=== PATIENT | male | born 1980 | race Caucasian/White ===

== ENCOUNTER 2016-09-24 15:14 | Emergency (ER) | payer MEDICARE, MEDICAID ==
[~2016-09-24] VITALS: Ht 185.4 cm; Wt 97.5 kg
[~2016-09-24 15:14] MED LIST: AZIT250T6 PO; BENZ100C PO; PRED50TA PO; PROAIR RESPICL90 MCG IH; PROM118S2 PO
[2016-09-24 16:12] VITALS: BP 139/75
--- NOTE | 2016-09-24 16:38 | PHYS DOC ---
Past Medical History Past Medical History: COPD Additional Past Medical Histor: back pain Past Surgical History: Other Additional Past Surgical Histo: TENDON MANIPULATION, PYLORIC STENOSIS, ANKLE (L ) Additional Information: 1/2 PPD Alcohol Use: None Drug Use: None Adult General Chief Complaint Chief Complaint: BACK PAIN - NO INJURY HPI HPI Patient is a 36 year old male who presents complaining of exacerbation of chronic back pain radiating to the left lower extremity. Patient denies any trauma. Denies any numbness or tingling to bilateral lower extremities. Denies any loss of bowel bladder function. Patient states once in a while he has exacerbation of this pain. Review of Systems Review of Systems Constitutional: Denies fever or chills [] Musculoskeletal: Left low back pain radiating to the left lower extremity Integument: Denies rash or skin lesions [] Neurologic: Denies headache, focal weakness or sensory changes [] Endocrine: Denies polyuria or polydipsia [] Allergies Allergies Allergies Coded Allergies Type Severity Reaction Last Updated Verified No Known Drug Allergies 01/29/16 No Physical Exam Physical Exam Constitutional: Well developed, well nourished, no acute distress, non-toxic appearance. [] Skin: Warm, dry, no erythema, no rash. [] Back: Diffuse paraspinal muscle tenderness to the left lumbar worse on the left SI joint, no midline lumbar spine tenderness, no CVA tenderness. Positive left leg straight raises Extremities: No tenderness, no cyanosis, no clubbing, ROM intact, no edema. [] Neurologic: Alert and oriented X 3, normal motor function, normal sensory function, no focal deficits noted. [] Psychologic: Affect normal, judgement normal, mood normal. [] Current Patient Data Vital Signs Vital Signs Date Time Temp Pulse Resp B/P (MAP) Pulse Ox O2 Delivery O2 Flow Rate FiO2 09/24/16 16:12 98.3 91 18 96 Room Air 98.3 EKG EKG [] Radiology/Procedures Radiology/Procedures [] Course & Med Decision Making Course & Med Decision Making Pertinent Labs and Imaging studies reviewed. (See chart for details) Patient is in the ED with exacerbation of chronic back pain with sciatica, he was provided a PCP for follow-up. He was provided return precautions and discharged in stable condition. Dragon Disclaimer Dragon Disclaimer This electronic medical record was generated, in whole or in part, using a voice recognition dictation system. Departure Departure Impression: Primary Impression: Low back pain Additional Impression: Sciatica Disposition: 01 HOME, SELF-CARE Condition: STABLE Referrals: NO PCP (PCP) Follow-up with a doctor from the list provided as soon as possible Patient Instructions: Back Pain, Adult, Sciatica with Rehab-SportsMed Additional Instructions: You were seen for exacerbation of chronic back pain with sciatica. Follow-up with a primary care doctor from the list provided as soon as you can Scripts Methocarbamol (ROBAXIN) 500 Mg Tablet 1 TAB PO TID, #30 TAB Prov: CHRIS SULLIVAN APRN 09/24/16 Tramadol Hcl (ULTRAM) 50 Mg Tablet 1 TAB PO Q6HRS, #30 TAB Prov: CHRIS SULLIVAN APRN 09/24/16 Problem Qualifiers Primary Impression: Low back pain Chronicity: acute Back pain laterality: left Sciatica presence: with sciatica Sciatica laterality: sciatica of left side Qualified Codes: M54.42 - Lumbago with sciatica, left side Additional Impression: Sciatica Laterality: left Qualified Codes: M54.32 - Sciatica, left side CHRIS SULLIVAN [employer] Sep 24, 2016 16:38
[2016-09-24] MEDS ORDERED: TRAM-48 PO (16:41)
[2016-09-24] MEDS ORDERED: METH-37 PO (16:41)
== END 2016-09-24 16:53 | disposition home or self-care (01) ==
LOC: ER 15:14
DX: M54.42 Lumbago with sciatica, left side (principal); G89.29 Other chronic pain; J44.9 Chronic obstructive pulmonary disease, unspecified; F17.200 Nicotine dependence, unspecified, uncomplicated
CPT/HCPCS: 99283

== ENCOUNTER 2017-02-13 19:53 | Emergency (ER) | payer MEDICARE, MEDICAID ==
[~2017-02-13] VITALS: Ht 185.4 cm; Wt 97.5 kg
[2017-02-13 19:53] VITALS: BP 146/74
[~2017-02-13 19:53] MED LIST changes: +METH-37 PO; +TRAM-48 PO
[2017-02-13] MEDS ORDERED: PRED50TA PO (20:24)
[2017-02-13] MEDS ORDERED: AZIT250T6 PO (20:24)
[2017-02-13] MEDS ORDERED: PROAIR HFA8.5 GM INH (20:24)
--- NOTE | 2017-02-13 20:25 | PHYS DOC ---
Past Medical History Past Medical History: COPD Additional Past Medical Histor: back pain Past Surgical History: Other Additional Past Surgical Histo: TENDON MANIPULATION, PYLORIC STENOSIS, ANKLE (L ) Alcohol Use: None Drug Use: None Adult General Chief Complaint Chief Complaint: Congestion HPI HPI Patient is a 36 year old male presents to the emergency department with a one- week history of upper respiratory symptoms with fever. Patient states that 7 days ago he developed ear pain with a fever and has since developed a cough. States that he is readily taking foods and fluids without vomiting but did have several episodes diarrhea. Does use tobacco, denies use of alcohol or drugs. Review of Systems Review of Systems Constitutional: Even without chills Eyes: Denies change in visual acuity, redness, or eye pain [] HENT: nasal congestion or sore throat [] Respiratory: Cough without shortness of breath Cardiovascular: Denies chest pain GI: Denies abdominal pain, nausea, vomiting, bloody stools, complaining of diarrhea : Denies dysuria or hematuria [] Musculoskeletal: Myalgia Integument: Denies rash or skin lesions [] Neurologic: Denies headache, focal weakness or sensory changes [] Endocrine: Denies polyuria or polydipsia [] All other systems were reviewed and found to be within normal limits, except as documented in this note. Current Medications Current Medications Current Medications Medications (Trade) Dose Ordered Sig/Cathryn Start Time Stop Time Status Last Admin Dose Admin Albuterol/ Ipratropium (Duoneb) 3 ml 1X ONCE 02/13/17 20:30 02/13/17 20:31 DC 02/13/17 20:44 3 ML Allergies Allergies Allergies Coded Allergies Type Severity Reaction Last Updated Verified No Known Drug Allergies 01/29/16 No Physical Exam Physical Exam Constitutional: Well developed, well nourished, no acute distress, non-toxic appearance. [] HENT: Normocephalic, atraumatic, bilateral external ears normal, right tympanic membrane erythematous with effusion, left tympanic membrane with effusion, oropharynx moist, posterior pharynx erythematous, no oral exudates, nose normal. [] Eyes: conjunctiva normal, no discharge. [] Neck: Normal range of motion, no tenderness, supple no lymphadenopathy, no stridor. [] Cardiovascular:Heart rate regular rhythm, no murmur [] Lungs & Thorax: Breath sounds with coarse rhonchi throughout. Scattered wheezing on inspiration Abdomen: Bowel sounds normal, soft, no tenderness Skin: Warm, dry, no erythema, no rash. [] Back: No tenderness, no CVA tenderness. [] Extremities: No tenderness, no cyanosis, no clubbing, ROM intact, no edema. [] Neurologic: Alert and oriented X 3, normal motor function, normal sensory function, no focal deficits noted. [] Psychologic: Affect normal, judgement normal, mood normal. [] Current Patient Data Vital Signs Vital Signs Date Time Temp Pulse Resp B/P (MAP) Pulse Ox O2 Delivery O2 Flow Rate FiO2 02/13/17 20:42 99 Room Air 02/13/17 19:53 98.3 83 18 98.3 EKG EKG [] Radiology/Procedures Radiology/Procedures [] Course & Med Decision Making Course & Med Decision Making Patient received a DuoNeb treatment in the ED for relief of wheezing. Pertinent Labs and Imaging studies reviewed. (See chart for details) [] Dragon Disclaimer Dragon Disclaimer This electronic medical record was generated, in whole or in part, using a voice recognition dictation system. Departure Departure Impression: Primary Impression: Acute bronchitis Additional Impression: Otitis media Disposition: HOME, SELF-CARE Condition: STABLE Referrals: NO PCP (PCP) Patient Instructions: Bronchitis Scripts Albuterol Sulfate (PROAIR HFA INHALER) 8.5 Gm Hfa.aer.ad 1 PUFF INH PRN Q6HRS Y for SHORTNESS OF BREATH, #1 INHALER 0 Refills Prov: DOLORES JORDAN APRN 02/13/17 Prednisone (PREDNISONE) 50 Mg Tablet 1 TAB PO DAILY, #5 TAB Prov: DOLORES JORDAN APRN 02/13/17 Azithromycin (AZITHROMYCIN TABLET) 250 Mg Tablet 250 MG PO DAILY for ANTI-BIOTIC, #6 TAB 0 Refills Take 2 tablets on day 1 and 1 tablet on days 2 through 5 Prov: DOLORES JORDAN APRN 02/13/17 Problem Qualifiers Primary Impression: Acute bronchitis Bronchitis organism: unspecified organism Qualified Codes: J20.9 - Acute bronchitis, unspecified Additional Impression: Otitis media Otitis media type: serous Chronicity: acute Laterality: right Recurrence : not specified as recurrent Qualified Codes: H65.01 - Acute serous otitis media, right ear DOLORES JORDAN APRN Feb 13, 2017 20:24
[2017-02-13] MEDS ORDERED: IPRATRPIUM/ALBUTEROL 0.5/2.5MG 3 ML NEBU. NEB ONE (20:30)
== END 2017-02-13 20:59 | disposition home or self-care (01) ==
LOC: ER 19:53
DX: J20.9 Acute bronchitis, unspecified (principal); H65.01 Acute serous otitis media, right ear; R19.7 Diarrhea, unspecified; J44.9 Chronic obstructive pulmonary disease, unspecified
CPT/HCPCS: 94640; 99283; J7620

== ENCOUNTER → 2018-04-20 | Outpatient (CLI) | payer MEDICAID, MEDICARE ==
[2017-11-04 16:59] VITALS: BP 143/70
[~2018-04-20] MED LIST changes: +ALBU2.5V8 INH; +CYCL10TA2 PO; +DICL50TA4 PO; +METH4TAB2 PO; -PROM118S2 PO; +PROM118S5 PO
--- NOTE | 2018-04-20 16:02 | KCIC ---
MR of the right shoulder HISTORY: Right shoulder pain. Decreased range of motion. Pain since summer 2017 without known injury. TECHNIQUE: Routine multiplanar sequences are obtained. FINDINGS: The acromioclavicular joint is slightly degenerative. Small undersurface osteophytes. Full-thickness rupture of the supraspinatus tendon measures 3.5 cm AP diameter with 4 cm retraction to about the level of the superior glenoid. [id number] muscle atrophy. Small subdeltoid bursal effusion. Small glenohumeral joint effusion. Tear of the superior labrum. No acute articular cartilage defect. Biceps tendon is intact. No bone lesion or acute fracture. No acute soft tissue abnormality. IMPRESSION: 1. Moderate full-thickness rotator cuff tear of the supraspinatus tendon with retraction. 2. Superior labral tear. Electronically signed by: Maged Sotelo MD (04/20/2018 3:59 PM) [id number]
== END | disposition home or self-care (01) ==
LOC: KCIC MRI 14:07
PROVIDERS: ATTEND Physical Medicine & Rehabilitation
DX: S43.431A Superior glenoid labrum lesion of right shoulder, initial encounter (principal); M75.101 Unspecified rotator cuff tear or rupture of right shoulder, not specified as traumatic; M25.411 Effusion, right shoulder; M25.711 Osteophyte, right shoulder; X58.XXXA Exposure to other specified factors, initial encounter; Y93.89 Activity, other specified; Y92.89 Other specified places as the place of occurrence of the external cause; Y99.8 Other external cause status
CPT/HCPCS: 73221